=== PATIENT | female | born 1990 | race Two or more races ===

== ENCOUNTER 2024-02-28 19:11 | Emergency (ER) | payer OTHER ==
[~2024-02-28] VITALS: Ht 170.2 cm; Wt 108.8 kg
[2024-02-28 19:49] VITALS: BP 132/94; PULSE 98; RESP 18; TEMP 98.3; O2SAT 99
[2024-02-28] MEDS ORDERED: ACET500T58 PO (20:15)
[2024-02-28] MEDS ORDERED: CEPH500C PO (20:15)
[2024-02-28] MEDS: TETANUS-DIPTH-ACEL PERTUSSIS 0.5ML SYR Tdap IM ONE (20:48)
== END 2024-02-28 21:12 | disposition home or self-care (01) ==
LOC: ER 19:11
DX: S01.112A Laceration without foreign body of left eyelid and periocular area, initial encounter (principal); F15.90 Other stimulant use, unspecified, uncomplicated; Z98.890 Other specified postprocedural states; Z79.899 Other long term (current) drug therapy; W22.8XXA Striking against or struck by other objects, initial encounter; Y93.89 Activity, other specified; Y92.89 Other specified places as the place of occurrence of the external cause; Y99.8 Other external cause status
CPT/HCPCS: 12011; 90471; 90715